=== PATIENT | female | born 1960 | race Caucasian/White ===

== ENCOUNTER 2019-10-06 00:31 | Emergency (ER) | payer OTHER, BC ==
[~2019-10-06] VITALS: Ht 160 cm; Wt 93.9 kg
[2019-10-06 01:01] LABS: BASO # 0.1 10*3/uL (0.0-0.1); BASO % 0.8 % (0.0-1.0); EOS # 0.3 10*3/uL (0.0-0.4); EOS % 3.4 % (1.0-4.0); HEMATOCRIT 44.3 % (37.0-47.0); LYMPH % 26.9 % (27.0-41.0); MEAN CELL VOLUME 89.5 fl (81.0-99.0); MEAN CORPUSCULAR HGB 29.9 pg (27.0-31.0); MEAN CORPUSCULAR HGB CONC 33.4 g/dl (33.0-37.0); MEAN PLATELET VOLUME 10.3 fl (9.6-12.3); MONO # 0.8 10*3/uL (0.1-1.0); MONO % 10.9 % (3.0-9.0); NEUT # 4.2 10*3/uL (2.3-7.9); NEUT % 57.5 % (47.0-73.0); PLATELET COUNT AUTOMATED 227 10*3/uL (130-400); RED BLOOD COUNT 4.95 10*6/uL (4.10-5.10); WHITE BLOOD COUNT 7.3 10*3/uL (4.8-10.8)
[2019-10-06 01:12] LABS: ACT PARTIAL THROMBO TIME 25.6 SECONDS (20.0-32.1); INTERNATIONAL NORM RATIO 0.9 (2.0-3.5)
[2019-10-06 01:18] LABS: ALKALINE PHOSPHATASE 150 U/L (45-117); BUN 19 mg/dl (7-24); CHLORIDE 105 mmol/L (98-107); CREATININE 0.79 mg/dL (0.55-1.02); POTASSIUM 3.8 mmol/L (3.5-5.1); SGOT/AST 26 IU/L (3-35); SGPT/ALT 58 U/L (12-78); SODIUM 138 mmol/L (136-145); TOTAL PROTEIN 7.7 gm/dL (6.4-8.2)
[2019-10-06 01:21] LABS: TROPONIN I < 0.015 ng/ml (<0.045)
[2019-10-06] MEDS ORDERED: TOPROL XL25 MG PO (02:09)
== END 2019-10-06 02:30 | disposition home or self-care (01) ==
LOC: ED 00:31
PROVIDERS: Family Medicine
DX: R00.0 Tachycardia, unspecified (principal); I10 Essential (primary) hypertension; Z87.891 Personal history of nicotine dependence

== ENCOUNTER → 2020-02-09 | Outpatient (CLI) | payer OTHER, BC ==
[~2020-02-09] MED LIST: TOPROL XL25 MG PO
== END | disposition home or self-care (01) ==
LOC: COVID19 15:56
PROVIDERS: ATTEND Family Medicine
DX: U07.1 COVID-19 (principal)

== ENCOUNTER 2025-02-20 05:19 | Observation (INO) | payer OTHER ==
[~2025-02-20] VITALS: Ht 154.9 cm; Wt 82.2 kg
[2025-02-20 05:42] VITALS: BP 188/77
[2025-02-20 06:32] LABS: BASO # 0.1 10*3/uL (0.0-0.1); BASO % 1.1 % (0.0-1.0); EOS # 0.6 10*3/uL (0.0-0.4); EOS % 7.4 % (1.0-4.0); MEAN CELL VOLUME 92.4 fl (81.0-99.0); MEAN CORPUSCULAR HGB 31.4 pg (27.0-31.0); MEAN PLATELET VOLUME 10.1 fl (9.6-12.3); MONO # 0.8 10*3/uL (0.1-1.0); MONO % 9.4 % (3.0-9.0); NEUT # 5.0 10*3/uL (2.3-7.9); NEUT % 62.8 % (47.0-73.0); NUCLEATED RED BLOOD CELL 0.0 % (0.0-0.0); NUCLEATED RED BLOOD CELL 0.0 10*3/uL (0.0-0.0); PLATELET COUNT AUTOMATED 218 10*3/uL (130-400); RED CELL DISTRI WIDTH 12.2 % (0-14.5)
[2025-02-20 06:50] LABS: BUN 26.0 mg/dl (9-23); SGPT/ALT 28.0 U/L (5-49)
[2025-02-20 07:35] VITALS: BP 145/64
[2025-02-20] MEDS ORDERED: ATORVASTATIN CA20 M1 PO (08:59)
[2025-02-20] MEDS ORDERED: LISINOPRIL-HCT1 EACH PO (09:00)
[2025-02-20] MEDS ORDERED: DILTIAZEM 24HR180 MG PO (09:00)
[2025-02-20] MEDS ORDERED: BREO ELLIPTA 11 EACH INH (09:02)
[2025-02-20] MEDS ORDERED: XOPENEX HFA15 GM INH (09:06)
[2025-02-20] MEDS ORDERED: NITROFURANTOIN100 M9 PO (09:07)
[2025-02-20] MEDS ORDERED: ACETAMINOPHEN 325 MG TAB PO PRN (11:20)
[2025-02-20] MEDS ORDERED: TEMAZEPAM 15 MG CAP PO PRN (11:20)
[2025-02-20] MEDS ORDERED: BISACODYL 10 MG SUPP R PRN (11:20)
[2025-02-20] MEDS ORDERED: BISACODYL 5 MG TAB PO PRN (11:20)
[2025-02-20] MEDS ORDERED: ACETAMINOPHEN 650 MG SUPP R PRN (11:20)
[2025-02-20] MEDS ORDERED: Ondansetron Hydrochloride 4 MG/2 ML VIAL IV PRN (11:20)
[2025-02-20 11:45] VITALS: BP 118/63
[2025-02-20 12:00] VITALS: BP 118/63
[2025-02-20] MEDS ORDERED: SODIUM CHLORIDE 0.9% 1,000 ML IV ONE (12:35)
[2025-02-20 16:00] VITALS: BP 110/62
[2025-02-20] MEDS ORDERED: ATORVASTATIN CALCIUM 20 MG TAB PO SCH (18:00)
[2025-02-20 20:00] VITALS: BP 126/61
[2025-02-20] MEDS ORDERED: LISINOPRIL 20 MG TAB PO SCH (22:00)
[2025-02-21] VITALS: BP 110/91
[2025-02-21 06:19] LABS: BASO # 0.1 10*3/uL (0.0-0.1); BASO % 0.9 % (0.0-1.0); EOS # 0.7 10*3/uL (0.0-0.4); EOS % 10.1 % (1.0-4.0); MEAN CELL VOLUME 92.1 fl (81.0-99.0); MEAN CORPUSCULAR HGB 31.6 pg (27.0-31.0); MEAN PLATELET VOLUME 10.4 fl (9.6-12.3); MONO # 0.6 10*3/uL (0.1-1.0); MONO % 8.8 % (3.0-9.0); NEUT # 3.4 10*3/uL (2.3-7.9); NEUT % 50.5 % (47.0-73.0); NUCLEATED RED BLOOD CELL 0.0 % (0.0-0.0); NUCLEATED RED BLOOD CELL 0.0 10*3/uL (0.0-0.0); PLATELET COUNT AUTOMATED 181 10*3/uL (130-400); RED CELL DISTRI WIDTH 12.7 % (0-14.5)
[2025-02-21 06:24] LABS: FREE T4 1.36 ng/dl (0.89-1.76); LDL CHOLESTEROL 69 mg/dL (9-159); SGPT/ALT 22 U/L (5-49)
[2025-02-21 06:37] LABS: BUN 16 mg/dl (9-23)
[2025-02-21 06:59] LABS: VITAMIN D, 25-HYDROXY 63.0 ng/mL (30-100)
[2025-02-21 08:00] VITALS: BP 128/60
[2025-02-21] MEDS ORDERED: Levalbuterol Hydrochloride 0.63 MG VIAL NEB ONE (08:55)
[2025-02-21] MEDS ORDERED: DILTIAZEM CD240 MG PO (09:47)
[2025-02-21] MEDS ORDERED: LISINOPRIL 20 MG TAB PO SCH (10:00)
== END 2025-02-21 10:55 | disposition home or self-care (01) ==
LOC: ED 05:19 → 5E 08:58 → EDHOLD 08:58 → 5E 08:58
PROVIDERS: Emergency Medicine; ADMIT Internal Medicine; ATTEND Internal Medicine
DX: R00.0 Tachycardia, unspecified (principal); I21.4 Non-ST elevation (NSTEMI) myocardial infarction; N17.0 Acute kidney failure with tubular necrosis; R65.10 Systemic inflammatory response syndrome (SIRS) of non-infectious origin without acute organ dysfunction; I10 Essential (primary) hypertension; E78.5 Hyperlipidemia, unspecified; J30.2 Other seasonal allergic rhinitis; J42 Unspecified chronic bronchitis; Z79.899 Other long term (current) drug therapy